=== PATIENT | male | born 1985 | race Caucasian/White ===

== ENCOUNTER 2019-05-17 16:59 | Observation (INO) ==
[2019-05-17 18:09] LABS: Magnesium 2.1 mg/dl (1.8-2.4)
[2019-05-17 18:30] LABS: Lyme Ab IgM w/WB Rflx Negative (Negative)
[2019-05-17 18:32] LABS: Lyme Ab IgG w/WB Rflx Negative (Negative)
[2019-05-17 20:09] LABS: Troponin I < 0.015 ng/ml (0-0.045)
--- NOTE | 2019-05-17 20:38 | History & Physical Report ---
Date of Service May 17, 2019 Assessment & Plan (1) History of syncope: Syncope/abnormal Holter monitoring/precordial substernal chest pain/bradycardia- The patient will be admitted to telemetry for serial cardiac enzymes, serial EKG's, cardiac rhythm monitoring and a 2-D echocardiogram with Dopplers. Patient has a strong family history of bradycardia and need for pacer placement in his father at a young age. He has had 3 episodes of syncope or near syncope with associated chest discomf ort that have been self-limited over the past 4 weeks. Holter monitor reportedly showed sinus bradycardia and sinus pauses. No reversible processes detected to treat at this time. We will consult cardiology. Present on Admission?: Yes (2) History of Holter monitoring: See above Present on Admission?: Yes (3) Bradycardia: See above Present on Admission?: Yes (4) Substernal precordial chest pain: See above Present on Admission?: Yes History of Present Illness Chief Complaint: The patient reports to the ED with complaint of chest pain and near syncope episodes 1 month ago, then 3 weeks ago, and then 5 days ago. Primary Care Provider: MAIDA Love The patient is a 33 yo male with PMH significant for father requiring a pacer at age 40, an uncle who in his 30's of presumed cardiac issues, who presents to the ED with 3 episodes over the past 4 weeks of chest pain and near syncope. He reportedly had a Holter Monitor performed 3 weeks ago, which was resulted today, which had a 3.1 second pause and HR in the 30's, and he was sent to the ED for further assessment. 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 Beliefs That Will Affect Care: Pentecostalism Pentecostalism Beliefs: Islam Current Living Situation: Other Current Living Situation Comment: [facility] Feels Safe at Home: Yes Safety Concerns: Feels Safe At This Time Smoking Status: Current every day smoker Tobacco Type: cigarettes Cigarettes Per Day: 10 Do You Dip or Chew Tobacco: No Second Hand Exposure: Yes Tobacco Cessation Education Requested by Patient: No Hx Alcohol Use: No Hx Substance Use: No Review of Systems Review of Systems: The patient denies shortness of breath, dyspnea on exertion, cough, lower extremity swelling, sore throat, fevers, chills, sweats, weight change, fatigue, vomiting, diarrhea , constipation, abdominal pain, pelvic pain, blood in urine or stool, dysuria, urinary frequency or urgency, headache, memory loss, rash, abnormal bruising or bleeding, focal weakness, numbness or tingling in arms or legs, generalized arthralgias or myalgias, back or neck pain, or night sweats. The review of systems is otherwise negative other than for that already noted above, and at least 10 systems have been reviewed. Physical Exam Physical Exam: The patient is awake, alert and oriented 3, well developed and well nourished, normocephalic and atraumatic, lying in bed and in no acute distress. HEENT--PERRL, EOMI, mucous membranes and oropharynx dry. Neck--supple. No JVD. No bruits. Thyroid normal, trachea midline, no adenopathy. Heart--normal S1 and S2. No murmurs, rubs or gallops. Lungs--clear bilaterally, no respiratory distress, no accessory muscle use. Abdomen--normal bowel sounds and soft. Nontender. Nondistended, no hernias or masses, no organomegaly. Extremities--no cyanosis or clubbing. No edema. There are good distal pulses b/l. Dermatologic--normal skin turgor, normal color, no abnormal lymph nodes, no rash. Neurologic--cranial nerves II through XII grossly intact. Rheumatologic--normal range of motion. Psychiatric--normal affect. Results & Data Vital Signs (Past 12 Hours) Vital Signs Temp Pulse Pulse Resp BP BP Pulse Ox 05/17/19 18:53 52 L 18 139/84 99 05/17/19 18:20 58 L 18 123/76 96 05/17/19 17:02 98.1 F 65 18 134/86 97 Laboratory Results Laboratory Results Magnesium 2.1 mg/dl (1.8-2.4) 05/17/19 17:25 Troponin I < 0.015 ng/ml (0-0.045) 05/17/19 21:59 TSH 1.270 uIu/ml (0.300-4.500) 05/17/19 17:25 Nasal Screen MRSA (PCR) Negative (Negative) 05/17/19 21:31 Lyme Disease IgG Ab Negative (Negative) 05/17/19 17:25 Lyme Disease IgM Ab Negative (Negative) 05/17/19 17:25 Diagnostic Findings [place], [place] [phone] XRay Report Patient: DIANN MARIE [id number] Date: 05/17/19 MR#: [id number]: Acct ID:[id number]: Date: 1985[facility] Zip: Age: 33Location: ED Sex: M Room/Bed: Att Phy: Diagnosis: cardiac eval/ [facility] Phy: [facility] Date: 05/17/19 Fam Phy: Interpreting Phy: Ricky Lechuga MD Admit Phy: Ordering Phy: Ismael Bah D.O. cc: ~ XR chest 1V portable CLINICAL HISTORY: Chest Pain pain COMPARISON STUDY: No previous studies for comparison. FINDINGS: The bones soft tissues and hemidiaphragms are normal. The cardiomediastinal silhouette is normal. The lungs are clear. The pulmonary vasculature is normal. IMPRESSION: Negative chest. The above report was generated using voice recognition software. It may contain grammatical, syntax or spelling errors. Electronically signed by: Ricky Lechuga M.D. 05/17/2019 1:42 PM Dictated: 05/17/19 1342 Transcribed: 05/17/19 1342 Code Status & VTE Plan Code Status full code VTE Prophylaxis Plan VTE Prophylaxis will be ordered: Yes PG Care Time/CCT Total # of Minutes Spent Total Time Spent with Patient: Total time spent is greater than 50% in coordination of care (as documented) at patient's floor/unit and/or counseling patient:
[2019-05-17] MEDS ORDERED: MAGNESIUM HYDROXIDE SUSP 30 ML UDC PO PRN (21:33)
[2019-05-17] MEDS ORDERED: ZOLPIDEM TARTRATE 5 MG TAB PO PRN (21:33)
[2019-05-17] MEDS ORDERED: ALUMINUM/MAGNESIUM SUSP 30 ML UDC PO PRN (21:33)
[2019-05-17] MEDS ORDERED: ACETAMINOPHEN 1000 MG/100 ML IV IV PRN (21:33)
[2019-05-17] MEDS ORDERED: ACETAMINOPHEN 325 MG TAB PO PRN (21:33)
[2019-05-17] MEDS ORDERED: ONDANSETRON INJ 2 MG/ML 2 ML VIAL IV PRN (21:33)
--- NOTE | 2019-05-18 00:34 | Emergency Department Note ---
Entered by Windy Becker acting as a scribe for Cindy Cardenas MD History of Present Illness General Chief complaint: Bradycardia Stated complaint: BRADYCARDIA Source: patient History of Present Illness Onset (ago): hour(s) (earlier today) Location: chest (bradycardia) Pain Consistency: + intermittent Relieved By: + none Associated symptoms: + denies other symptoms (abdominal pain), + nausea/vomiting (positive nausea, negative vomiting), + syncope and + other (dizziness, palpitations); no fever/chills and no shortness of breath The patient is a 33 year old M who presents to the Emergency Room with complaints of intermittent bradycardia that occurred earlier today. The patient is a prisoner. He states that he was here at the ED, earlier today, for his current symptoms. He notes that he is currently on a Holter monitor. He adds that he was started on a Holter monitor after experiencing a mini-stroke 1 month ago. He notes that before 1 month ago, his last mini-stroke was 2 years ago. He states that after his mini-stroke, he had an echocardiogram performed which found that he experienced ventricular hypertrophy on his left side. He notes t hat he was brought to the ED earlier today because his Holter monitor recorded a pause of 3 seconds and a heart rate of 37 bpm. He states that he is currently experiencing nausea and syncope. He adds that 1 month ago, he was working and started to experience dizziness and palpitations. He denies experiencing any fevers, shortness of breath, and abdominal pain. He notes that he has a family history of strokes. 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 and A total of 10 systems reviewed and were otherwise negative Physical Exam Vital Signs Vital Signs - 24 hr 05/17/19 17:02 05/17/19 18:20 05/17/19 18:53 Temperature 36.7 C Temperature Source Oral Sepsis Recent Fever Within 48 Hours No Sepsis New/Unexplained Change in Mental Status No Sepsis Action Taken by Nursing No Action Required Pulse Rate 65 Pulse Rate [Left] 58 L 52 L Pulse Rhythm Regular Pulse Strength Normal Respiratory Rate 18 18 18 Respiratory Effort / Characteristics Non-Labored Spontaneous Respiratory Depth Normal Respiratory Pattern Regular Blood Pressure 134/86 Blood Pressure [Right Arm] 123/76 139/84 Blood Pressure Mean 102 Blood Pressure Mean [Right Arm] 91 102 Blood Pressure Position Sitting Pulse Oximetry 97 96 99 Oxygen Delivery Method Room Air Room Air Room Air Vital signs reviewed. General: Well-appearing male, in no significant distress. HEENT: No scleral icterus, PERRLA, neck supple. Atraumatic. Cardiovascular: Regular rate and rhythm, no extra sounds. Pulmonary: Clear to auscultation bilaterally, normal work of breathing. Abdomen: Soft, nontender, nondistended, positive bowel sounds. Musculoskeletal: Atraumatic, no peripheral edema. Neurologic: Patient awake alert and oriented x 3 Skin: Warm, dry, no rash Course 1711: The patient was evaluated in room B12B. A complete history and physical exam was performed. 1926: I reviewed the patient's case with Dr. Carlos Montano, [facility] Hospitalist. He will evaluate the patient for further management. Consultations Consultation #1: I reviewed the patient's case with Dr. Carlos Montano, [facility] Hospitalist. He will evaluate the patient for further management. Time: 19:27 Medical Decision Making Differential Diagnosis Differential diagnosis includes: premature contractions, electrolyte abnormality, cardiac dysrhythmia, thyroid dysfunction, pulmonary embolism, infection, gastrointestinal, as well as others were entertained. Medical Records Attestation: I reviewed the patient's medical records. Home Medications Current Medication List: was personally reviewed by me Laboratory Data Attestation: I reviewed the patient's lab results. Lab Results 05/17/19 05/17/19 Range/Units 17:25 17:25 Magnesium 2.1 (1.8-2.4) mg/dl Troponin I < 0.015 (0-0.045) ng/ml TSH 1.270 (0.300-4.500) uIu/ml Lyme Disease IgG Ab Negative (Negative) Lyme Disease IgM Ab Negative (Negative) ECG Data Attestation: I personally reviewed and interpreted this ECG as follows: Indication: bradycardia Rate (beats per minute): 91 Rhythm: sinus with SA Findings: + other (rightward axis) and + T-wave inversion (Inferior); no acute ischemic change and no ectopy Blood Pressure Blood Pressure Findings: Normal blood pressure Blood Pressure Disposition: did not require urgent referral MDM Narrative This patient was evaluated and appeared to be in no significant distress. Patient's records were reviewed. Apparently the patient had a 3-second pause on a Holter monitor at the beginning of this month. The Holter monitors read was processed today through the penitentiary physician. Patient states he was working in the [employer] at the penitentiary where he was called to "go down to medical." Patient denies any syncope, chest pain or shortness of breath today. He does admit to a history of stroke, but states he was worked up only through the penitentiary. Also has a history of syncope, last episode was 1 month ago. Laboratory work from earlier today was reviewed, a Lyme titer, magnesium and troponin were ordered and are within normal limits. Patient's case was discussed with the hospitalist who will evaluate the patient for further management at the request of the penitentiary physician. Impression & Plan Bradycardia, History of syncope Discharge Plan Visit Data *Final* Discharge Date/Time: 05/17/19 21:11 Chief Complaint: Bradycardia Stated Complaint: BRADYCARDIA ED Provider: Cindy Cardenas Discharge Problem: Bradycardia, History of syncope Patient Disposition: Admitted As Inpatient Discharge Instructions Interventions: ED Discharge Assessment Last Done: 05/17/19 21:11 The scribe's documentation has been prepared under my direction and personally reviewed by me in its entirety. I confirm that the note above accurately reflects all work, treatment, procedures, and medical decision making performed by me.
[2019-05-18] MEDS ORDERED: ASPIRIN 81 MG CHEW PO SCH (09:00)
--- NOTE | 2019-05-18 12:41 | Hospitalist Progress Note ---
Date of Service May 18, 2019 Assessment & Plan (1) History of syncope: Syncope/abnormal Holter monitoring/precordial substernal chest pain/bradycardia- for the chest pain, his troponin is negative x 3 sets, EKG without ischemic change plan for stress echo today, results pending Dr. Bruno following at this time we have not determined whether he would need pacemaker continue to monitor on tele will need input from electrophysiology Patient has a strong family history of bradycardia and need for pacer placement in his father at a young age. He has had 3 episodes of syncope or near syncope with associated chest discomfort that have been self-limited over the past 4 weeks. Holter monitor reportedly showed sinus bradycardia and sinus pauses. (2) History of Holter monitoring: See above (3) Bradycardia: See above (4) Substernal precordial chest pain: See above Subjective patient feels fine, no issues since admission we discussed the findings on the Holter monitor with some HR in the 30's and 3.1 second pause he says that he did have some syncopal and presyncopal events within the time frame appreciate cardiology see patient, plan for stress echo today as well as routine echo to evaluate heart patient had questions about what a pacemaker would do, how does it work? answered his questions, he understood reasons for putting one in, but explained that it would only be done if there was a true indication Review of Systems Review of Systems: All systems reviewed & are unremarkable except as noted in HPI & below Constitutional: no fever, no chills, no sweats, no fatigue and no weakness Respiratory: no cough and no dyspnea Cardiovascular: no chest pain Gastrointestinal: no abdominal pain, no nausea, no vomiting, no constipation and no diarrhea/loose stools Physical Exam Constitutional: WD/WN, vitals as above Eyes: PERRL, conjunctivae normal, anicteric sclerae ENMT: external ear and nose normal, oropharynx normal Neck: trachea midline, no thyromegaly Respiratory: normal respiratory effort, lungs clear to auscultation Cardiovascular: RRR, no murmur, no edema Gastrointestinal (Abdomen): normal bowel sounds, soft, nontender, no hepatosplenomegaly Musculoskeletal: no cyanosis or clubbing, extremities motor strength 5/5 Skin: no rashes, warm and dry Neurologic: patellar DTR's 2+ bilat, sensation intact and PERRL, EOMI, accommodation nl, no face palsy, no dysarthria Psychiatric: A+Ox3, euthymic affect Lymphatic: no cervical or axillary lymphadenopathy Results & Data Vital Signs (Past 12 Hours) Vital Signs Temp Pulse Resp BP Pulse Ox 05/18/19 11:53 37.0 C 63 18 128/86 98 05/18/19 07:47 36.3 C L 61 17 135/85 97 05/18/19 04:26 36.6 C 56 L 18 97/55 L 98 Laboratory Results Laboratory Results - last 24 hr 05/17/19 05/17/19 05/17/19 17:25 17:25 21:31 Magnesium 2.1 Troponin I < 0.015 TSH 1.270 Nasal Screen MRSA (PCR) Negative Lyme Disease IgG Ab Negative Lyme Disease IgM Ab Negative 05/17/19 21:59 Magnesium Troponin I < 0.015 TSH Nasal Screen MRSA (PCR) Lyme Disease IgG Ab Lyme Disease IgM Ab Medications Administered Current Inpatient Medications Acetaminophen (Ofirmev) 1,000 mg IV Q8H PRN PRN Reason: Pain or Fever Stop: 06/16/19 21:32 Acetaminophen (Tylenol) 650 mg PO Q4H PRN PRN Reason: Pain or Fever Stop: 06/16/19 21:32 Al Hydrox/Mg Hydrox/Simethicone (Maalox) 15 ml PO Q4H PRN PRN Reason: Dyspepsia Stop: 06/16/19 21:32 Aspirin (Aspirin Chew) 81 mg PO QAM [facility] Stop: 06/17/19 08:59 Last Admin: 05/18/19 09:01 Dose: 81 mg Documented by: Magnesium Hydroxide (Milk Of Magnesia) 30 ml PO Q12H PRN PRN Reason: Constipation Stop: 06/16/19 21:32 Ondansetron HCl (Zofran) 4 mg IV Q6H PRN PRN Reason: NAUSEA/VOMITING Stop: 06/16/19 21:32 Zolpidem Tartrate (Ambien) 5 mg PO HS PRN PRN Reason: Sleep Stop: 06/16/19 21:32 PG Care Time/CCT Total # of Minutes Spent Total Time Spent with Patient: Total time spent is greater than 50% in coordination of care (as documented) at patient's floor/unit and/or counseling patient:
--- NOTE | 2019-05-18 13:44 | Cardiology Consultation ---
Date of Consultation May 18, 2019 Assessment & Plan (1) Bradycardia: Patient with Holter monitor report showing heart rate consistently in the 30s, no symptoms reported on the monitor but the patient states he was lightheaded during this time. Unfortunately, the actual tracings are not pres ent. Monitor here showed fairly unremarkable heart rate, with bradycardia at night most likely physiologic. On stress echocardiogram, appropriate chronotropic response to activity. In the absence of more definitive evidence for extreme bradycardia or heart block as a cause for his symptoms, would be reluctant to recommend a pacemaker for patient this young. Difficult to discern the physiology that would cause intermittent bradycardia, other than high vagal tone. His Lyme titer was negative, excluding this, and there is no evidence of heart block (which would be the usual manifestation of Lyme cardiac involvement). At this point, there is not enough definitive evidence to proceed with pacemaker placement. Although he has had symptoms, the lack of any trauma associated with the syncope reasons some doubt as to whether these episodes are in fact bradycardia or heart block related. Also, given negative stress echocardiogram, it is unclear why he would have chest pain as a presyncopal phenomenon. Certainly, given his dramatic findings on Holter report (not corroborated by tracings), it may be reasonable to evaluate further with an implantable loop recorder. I spoke with Dr. Velásquez, she will evaluate the patient for possible loop recorder placement. (2) History of syncope: No evidence of traumatic syncope. See comments regarding bradycardia. (3) Substernal precordial chest pain: Troponin negative x3, stress echocardiogram negative, no evidence of ischemic etiology for his chest symptoms. Chest pain would be an unusual presentation for hypoperfusion due to heart block. Loop recorder will help identify the connection, if any, between future chest pain episodes and bradycardia/heart block. No further ischemic workup given lack of evidence for occlusive coronary disease at high workload on stress echocardiogram. (4) History of Holter monitoring: Would like to see actual tracings to confirm heart rate was in the 30s and that this is not a machine reading of artifact. History of Present Illness Attending Physician: Abdon Bruner, History of Present Illness 33-year-old generally healthy man who is experience multiple near syncopal or possibly syncopal episodes over the past few weeks and was found on Holter monitor to have sinus bradycardia at an average of 37 ppm with pauses of up to 3.1 seconds. 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 Another episode occurred when he was standing in the longterm yard. Jj was told by a fellow inmate that he had passed out. No lacerations, fractures, or other external trauma occurred in any of these episodes. He does feel dizzy intermittently, including during the Holter monitor recording. He noted mid central chest pain and diaphoresis at the time of his near syncopal episodes. Does not have chest pain at other times and notes no exertional symptoms. He had no complaints at the time of my evaluation. 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 Beliefs That Will Affect Care: Hinduism Hinduism Beliefs: Rastafarian Current Living Situation: Other Current Living Situation Comment: [facility] Feels Safe at Home: Yes Safety Concerns: Feels Safe At This Time Smoking Status: Current every day smoker Tobacco Type: cigarettes Cigarettes Per Day: 10 Do You Dip or Chew Tobacco: No Second Hand Exposure: Yes Tobacco Cessation Education Requested by Patient: No Hx Alcohol Use: No Hx Substance Use: No Review of Systems Review of Systems: All systems reviewed & are unremarkable except as noted in HPI & below Constitutional: no fever and no chills Eyes: no problem reported Ear, Nose, Mouth, Throat: no problem reported Respiratory: no cough, no dyspnea and no dyspnea on exertion Cardiovascular: + chest pain and + syncope; no orthopnea and no edema Gastrointestinal: no problem reported Musculoskeletal: no joint pain and no muscle weakness Integumentary: no rash and no new lesions Neurologic: no localized weakness and no behavioral changes Hematologic / Lymphatic: no easy bleeding and no easy bruising Physical Exam Physical Exam: No distress. Skin: No unusual lesions or ecchymosis. HEENT: Unremarkable. Neck: Jugular venous pulse at the clavicle at 90, no carotid bruits. Lungs: Clear and equal breath sounds bilaterally. No wheezing or crackles. Cardiac: Regular rhythm with normal S1 and S2. No murmur or gallop. Abdomen: Benign. Extremities: Nontender without edema. Intact peripheral pulses. Neurologic: Normal affect, nonfocal Results & Data Vital Signs (Past 12 Hours) Vital Signs Temp Pulse Resp BP Pulse Ox 05/18/19 11:53 98.6 F 63 18 128/86 98 05/18/19 07:47 97.3 F L 61 17 135/85 97 05/18/19 04:26 97.9 F 56 L 18 97/55 L 98 Laboratory Results 05/17/19 05/17/19 05/17/19 14:14 17:25 21:59 Potassium 4.2 Magnesium 2.1 Troponin I < 0.015 < 0.015 < 0.015 Lyme titers (IgG and IgM) were negative on 05/17/2019. Diagnostic Findings ECG showed sinus rhythm at 60 ppm initially. Repeat ECG showed sinus rhythm with nonspecific axis change and inferior T-wave inversions. A third ECG reverted to finding similar to the first. Overnight monitoring showed sinus rhythm with generally normal heart rates, minimum 37 ppm, no heart block or dysrhythmias. Echocardiogram showed normal left ventricular size and systolic function with no wall motion abnormalities and no significant valvular disease. Right ventricular systolic pressure is normal. Stress echocardiogram: Patient exercised for 10 minutes on a Alexandr protocol achieving 81% maximum predicted heart rate with no symptoms, heart block or rhythm problems, or ST changes. Resting and stress echocardiograms unremarkable.
--- NOTE | 2019-05-18 17:02 | History & Physical Bridge Note ---
Date of Service May 18, 2019 History & Physical Bridge Note I have examined the patient, reviewed the History & Physical and in the interval since the performance of the History & Physical I have noted the following changes of clinical significance: pt with syncope unclear etiology for LINQ
[2019-05-18] MEDS ORDERED: LIDOCAINE HCL 1% 20 ML VIAL ONE (17:05)
[2019-05-18] MEDS ORDERED: CEFAZOLIN 250 MG/ML 1 GM VIAL ONE ×2 (17:09→17:10)
--- NOTE | 2019-05-18 17:22 | Operative Report ---
Post Operative Report Pre & Post Diagnosis syncope Operation Date: 05/18/19 17:00 <No data on this case meets the specified criteria> Procedure Operation Date: 05/18/19 17:00 Actual Procedures p Implant Cardiac Event Recorder - Earnestine Velásquez DO Surgeon Earnestine Velásquez, [employer] Sales Agent none Estimated Blood Loss 1 Findings Consistent with Post-Op Diagnosis Specimens none Description of Procedure see official report I attest to the content of the Intraoperative Record and any orders documented therein. Any exceptions are noted below.
--- NOTE | 2019-05-24 07:09 | Discharge Summary ---
Date of Service May 18, 2019 Admission HPI Per Admitting Provider The patient is a 33 yo male with PMH significant for father requiring a pacer at age 40, an uncle who in his 30's of presumed cardiac issues, who presents to the ED with 3 episodes over the past 4 weeks of chest pain and near syncope. He reportedly had a Holter Monitor performed 3 weeks ago, which was resulted today, which had a 3.1 second pause and HR in the 30's, and he was sent to the ED for further assessment. 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 Principal Diagnosis Recurrent syncope, bradycardia Discharge Exam Constitutional WD/WN, vitals as above Eyes PERRL, conjunctivae normal, anicteric sclerae ENMT external ear and nose normal, oropharynx normal Neck trachea midline, no thyromegaly Respiratory normal respiratory effort, lungs clear to auscultation Cardiovascular RRR, no murmur, no edema Gastrointestinal (Abdomen) normal bowel sounds, soft, nontender, no hepatosplenomegaly Musculoskeletal no cyanosis or clubbing, extremities motor strength 5/5 Skin no rashes, warm and dry Neurologic patellar DTR's 2+ bilat, sensation intact and PERRL, EOMI, accommodation nl, no face palsy, no dysarthria Psychiatric A+Ox3, euthymic affect Lymphatic no cervical or axillary lymphadenopathy Discharge Data Allergies Allergy/AdvReac Type Severity Reaction Status Date / Time No Known Allergies Allergy Unverified 05/17/19 17:21 Consultations 05/17/19 19:55 ED Decision to Admit Stat 05/17/19 21:33 Consult Cardiology Routine Consult Case Management - Discharge Planning Routine 05/18/19 14:57 Consult Cardiac Electrophysiology Routine Procedures Performed Operation Date: 05/18/19 17:00 Actual Procedures p Implant Cardiac Event Recorder - Earnestine Velásquez DO Hospital Course (1) History of syncope: Syncope/abnormal Holter monitoring/precordial substernal chest pain/bradycardia- for the chest pain, his troponin is negative x 3 sets, EKG without ischemic change stress echocardiogram normal, no concerns for coronary disease Dr. Bruno following Dr. Bruno discussed with EP decided to place a loop recorder which will record the last 24 hours of activity the plan is for the patient to return to hospital immediately if he has syncopal event THE LOOP RECORDER MUST BE INTERROGATED WITHIN 24 HOURS OF SYNCOPE Patient has a strong family history of bradycardia and need for pacer placement in his father at a young age. He has had 3 episodes of syncope or near syncope with associated chest discomfort that have been self-limited over the past 4 weeks. Holter monitor reportedly showed sinus bradycardia and sinus pauses. (2) History of Holter monitoring: average rates were in the 30's pauses of 3 seconds captured plan is to use a loop recorder to try to capture specific rhythm or length of pause that causes syncope again, patient needs to return to the hospital within 24 hours of syncopal event would ideally send him over immediately the next time he passes out (3) Bradycardia: See above (4) Substernal precordial chest pain: troponin negative x 3 sets exercise stress echocardiogram normal no further testing per cardiology Total Time Total Time Spent Total Time Spent (In Minutes): 32 Total Time Includes: Examination of the Patient, Discharge Planning, Medication Reconciliation and Communication With Other Providers (Dr. Bruno) Discharge Plan Discharge Items [facility] Disposition: [facility] Reason For Visit: BRADYCARDIA,NEAR SYNCOPE Discharge Diagnosis: Syncope Bradycardia Chest pain, non cardiac Condition: Good Discharge Goals: Diagnostic testing and Improve function Activity: Resume your previous activity Non-emergency contact: Primary Care Provider and Senior Budget Analyst Call non-emergency contact if: you have any medication questions, your symptoms worsen and you have a fever Follow-up/Referrals: Ivan BEY [Primary Care Provider] - Diet: Regular Addtl Provider Instructions: Medications: no changes Chest pain: exercise stress echo showed no signs of ischemia troponin x 3 negative thus pain was not due to heart Slow HR and pauses will have loop recorder placed by cardiology go back to [facility] if okay with cardiology after procedure if loop recorder cannot be placed today then can be discharged and cardiology will arrange for loop recorder once loop recorder placed, IF YOU HAVE SYNCOPE YOU NEED TO COME TO THE HOSPITAL WITHIN 24 HOURS TO DETERMINE WHAT HAPPENED FOLLOW UP - recommend follow up with cardiology in 3-4 weeks to go over loop recorder results Prescriptions: Continued aspirin 81 mg Tablet,Chewable 81 mg PO QAM RF: 0 Stand-Alone Forms: [facility] Admission Data Admit Date/Time: 05/17/19 20:31 Attending Provider: Abdon Bruner Admit Provider: Carlos Montano Primary Care Provider: Ivan BEY Other Providers: Carlos Montano ; Yinka Reyes ; Earnestine Velásquez Service: Telemetry Other Interventions: Discharge Summary Assessment (RN) Last Done: 05/18/19 18:00 DC Date/Time DO NOT enter until pt leaves facility: 05/18/19 07:02
--- NOTE | 2019-05-29 09:45 | Operative Report ---
DATE OF OPERATION: 05/18/2019 SURGEON: Earnestine Velásquez DO. PREOPERATIVE DIAGNOSIS: Syncope. POSTOPERATIVE DIAGNOSIS: Syncope. PROCEDURE PERFORMED: LINQ insertion. COMPLICATIONS: None. CONDITION: Stable. URINE OUTPUT: Not applicable. SPECIMENS: None. FINDINGS: See below. DRAINS: None. IV FLUIDS: None. ANESTHESIA: 10 mL of 1% lidocaine. INDICATIONS: This is a 33-year-old gentleman who has a past medical history for syncope. He supposedly was syncopized while being incarcerated at [facility], wore a Holter monitor that showed some sinus bradycardia, but he was admitted to [facility] for these reasons. Had an exercise echocardiogram, stress test and did excellent. Due to the unexplained syncope and this sinus bradycardia on a Holter monitor, he was recommended a LINQ insertion. CONSENT: Consent was obtained prior to the patient going into the Electrophysiology lab. The patient was informed of risks, benefits, and alternatives of the procedure. Risks include but not limited to sudden bleeding and infection. The patient understood these risks and agreed to the procedure as planned. Informed consent was obtained. DESCRIPTION OF PROCEDURE: The patient was brought into the Electrophysiology Lab in fasting state. He was connected to continuous cardiac exercise specialist. A timeout was performed to ensure the patient's identity and procedure correctly. The patient was prepped and draped over the left sternal border over the chest in a normal surgical standard fashion. [place] precautions were maintained throughout the procedure. A 10 mL of 1% lidocaine were given into the left of the sternal border in the fourth intercostal space for local anesthesia. Then using a LINQ tool kit, the LINQ was inserted without any complications. A 4-0 Vicryl stitch was placed in one interrupted stitch to approximate the skin, then a 4 running stitch and then Dermabond was placed. IMPRESSION: Successful LINQ insertion due to syncope. PLAN: Shower tomorrow, is okay for discharge home. Discharge back to the half-way today and he will follow up with [facility] Cardiology office for device and wound check. I attest to the content of the Intraoperative Record and any orders documented therein. Any exception s are noted below.
== END 2019-05-18 07:02 ==
LOC: 2S 16:59 → ED 16:59 → SUATTDRO 20:31 → 2S 21:11